=== PATIENT | male | born 1970 | race African-American/Black ===

== ENCOUNTER 2017-02-20 10:44 | Inpatient (IN) ==
[2017-02-20] MEDS ORDERED: SODIUM CHLORIDE 0.9% 500 ML IV STA (12:25)
[2017-02-20] MEDS ORDERED: ONDANSETRON 4 MG/2 ML VIAL IV STA (12:25)
[2017-02-20] MEDS ORDERED: HYDROmorphone 2 MG/1 ML VIAL IV STA ×2 (12:25→16:20)
--- NOTE | 2017-02-20 12:38 | XRay Report ---
XR chest 1V portable Indication: Abdominal pain Comparison: None. Technique: Portable AP chest was performed. Findings: Heart size, mediastinal contour, and hilar structures demonstrate no evidence of acute pathology. Lungs are clear. Bones and soft tissues demonstrate no evidence of acute pathology. Impression: 1. No evidence of acute pathology. 02/20/2017 12:36 PM PROCEDURE INTERPRETED AT [facility] ([facility] DEPARTMENT OF RADIOLOGY Final Report Signed by: Dr. Fabio Hanks
[2017-02-20 12:50] LABS: Basophils # 0.1 10*3/uL (0.0-0.2); Basophils % 0.8 % (0.0-0.8); Eosinophils # 0.3 10*3/uL (0.0-0.87); Eosinophils % 2.8 % (0.00-10.9); Hematocrit 50.1 VOL% (42.0-52.0); Hemoglobin 17.6 GM/DL (14.0-18.0); Immature Granulocytes % 0.3 %; Immature Granulocytes Absolute 0.03 #; Lymphocytes # 1.8 10*3/uL (1.4-4.0); Lymphocytes % 18.3 % (21.2-54.2); Mean Corpuscular HGB Conc 35.1 GM/DL (32-36); Mean Corpuscular Hemoglobin 32 PG (27-34); Mean Corpuscular Volume 90.1 FL (87-102); Mean Platelet Volume 10.5 FL (9.6-12.0); Monocytes # 0.7 10*3/uL (0.11-0.8); Monocytes % 6.8 % (1.7-12.7); Neutrophils # 6.8 10*3/uL (1.4-7.4); Platelet Count 191 T/CUMM (130-400); Red Blood Count 5.56 MC/CUMM (3.8-5.5); Red Cell Distribution Width 11.7 % (9.3-17.3); White Blood Count 9.6 T/CUMM (4-12)
[2017-02-20] MEDS ORDERED: ONDANSETRON 4 MG/2 ML VIAL ONE (12:50)
[2017-02-20] MEDS ORDERED: HYDROmorphone 2 MG/1 ML VIAL ONE (12:50)
[2017-02-20 13:10] LABS: Apearance,Urine CLEAR (Clear); Bilirubin,Urine Negative (Negative); Blood, Urine Negative (Negative); Glucose,Urine (UA) Negative (Negative); Ketones,Urine 5 mg/dL (Negative); Mucus,Urine Occasional /LPF (Occasional); Nitrite,Urine Negative (Negative); Protein,Urine Negative; RBC,Urine 1 /HPF (0-4); Urine Color Yellow (Yellow); Urine Specific Gravity 1.026 (1.001-1.035); WBC,Urine <1 /HPF (0-6)
[2017-02-20 13:21] LABS: Albumin 4.2 G/DL (3.4-5.0); Bilirubin,Total 0.6 MG/DL (0.2-1.0); Calcium 9.2 MG/DL (8.5-10.1); Magnesium 2.4 MG/DL (1.8-2.4); Potassium 4.1 MMOL/L (3.5-5.1); Total Protein 7.2 G/DL (6.4-8.3)
--- NOTE | 2017-02-20 13:56 | Emergency Department Note ---
Judy Chance Hilary, am scribing for, and in the presence of, Zen Amaya MD 12:30. Monique Chance Phillip K, MD, personally performed the services described in this documentation, ascribed by Natalia Kim in my presence, and it is both accurate and complete [id number] . Arrival - Arrival Chief Complaint: Abdominal / Flank Pain Stated Complaint: gallstone x 3 days/fever ED Nursing Triage Note: reports pain in right flank abd area since . was told that he had gallbladder disease and given meds and sent home. painful to stand up straight Mode of Arrival: Wheelchair Limitations: No Limitations Source: Patient, RN Notes Reviewed - History of Present Illness HPI Narrative: Pt is a 47 y/o male presenting to the ED with c/o of abdominal and flank pain which onset 2 days ago. Pt states he was at work when the pain started and he was having trouble putting weight on his right leg due to the pain. He confirms fever, nausea, RUQ swollen but denies vomiting. Pt reports he went to the doctor in [place], [place] on Monday and their CT showed he had gallstones and then they sent him home. He also states that it seems to get worse when he eats fried or spicy foods. No other complaints or problems stated in the ED. Onset (ago): day(s) Allergies/Adverse Reactions: Allergies Allergy/AdvReac Type Severity Reaction Status Date / Time No Known Allergies Allergy Unverified 02/20/17 11:19 Home Medications: Home Medications Medication Instructions Recorded Confirmed Type Hydrocodone/Acetaminophen 1 each PO Q6H PRN 02/20/17 02/20/17 History [Hydrocodon-Acetaminoph 7.5-325] Lisinopril 20 mg PO DAILY 02/20/17 02/20/17 History Ondansetron HCl 8 mg PO Q6H PRN 02/20/17 02/20/17 History Review of System - Review of System 12 point system: reviewed and no additional remarkable complaints except as stated - Review of System Constitutional: Absent: fever Cardiovascular: Absent: chest pain Gastrointestinal: Present: abdominal pain (RUQ and Right Flank pain), nausea, constipation (Last BM 2 days ago). Absent: vomiting Musculoskeletal: Present: back pain (Right flank). Absent: leg pain Medical,Surgical,& Family Hx - Medical History Cardio: History of: Hypertension - Social History Smoking Status: Current every day smoker Exam Vital Signs: Vital Signs Temperature 99.2 F 02/20/17 11:15 Pulse Rate 99 H 02/20/17 11:15 Respiratory Rate 18 02/20/17 11:15 Blood Pressure 143/98 02/20/17 11:15 O2 Sat by Pulse Oximetry 99 02/20/17 11:15 - General General appearance: alert, in no apparent distress - Head Head exam: Present: atraumatic, normocephalic - Eye Eye exam: Present: normal appearance, PERRL, EOMI - ENT ENT exam: Present: mucous membranes moist, TM's normal bilaterally. Absent: mucous membranes dry - Neck Neck exam: Present: full ROM, trachea midline. Absent: tenderness - Chest Chest inspection: Present: symmetric chest wall rise. Absent: tenderness - Respiratory Respiratory exam: Present: normal lung sounds bilaterally. Absent: respiratory distress - Cardiovascular Cardiovascular exam: Present: normal rhythm, tachycardia, normal heart sounds. Absent: murmur, rubs, gallop - Abdominal Exam Abdominal exam: Present: soft, distention (Right side), tenderness (RUQ tenderness on palpation) - Extremities Exam Extremities exam: Present: full ROM. Absent: tenderness, pedal edema - Back Exam Back exam: Present: full ROM, tenderness (Right flank tenderness to palpation) - Neurological Exam Neurological exam: Present: alert, oriented X3, CN II-XII intact. Absent: motor sensory deficit - Psychiatric Psychiatric exam: Present: normal affect, normal mood - Skin Skin exam: Present: warm, dry, intact, normal color. Absent: rash Results - Labs CBC & BMP: 02/20/17 12:39 02/20/17 12:39 Lab Results: I have reviewed the patients labs Labs: Laboratory Tests 02/20/17 02/20/17 12:25 12:39 RBC 5.56 H Lymph % (Auto) 18.3 L Urine Urobilinogen 2.0 H Laboratory Tests 02/20/17 12:39 Glucose 107 H Calculated Osmolality 270.0 L - Diagnostic Findings Procedure: Chest x-ray: report reviewed by me (1. No evidence of acute pathology ) Disposition Clinical Impression: Cholelithiasis and cholecystitis without obstruction Case discussed with: patient Disposition: Still a Patient Condition: Guarded Additional Instructions: Admit to Dr. Mcmahan
--- NOTE | 2017-02-20 15:45 | General Surg History&Physical ---
Assessment and Plan - Time spent with patient Time spent with patient: Greater than 30 minutes (Patient history, patient records, and establishing plan of care) (1) Cholelithiasis and cholecystitis without obstruction Status: Acute Assessment and plan: At this time, it appears the patient has cholelithiasis associated with Kari cystitis. Further clarification with additional testing and/or imaging per Dr. niall antonio. His LFTs are unremarkable at this time. Repeat labs in the morning. We will keep the patient n.p.o., treat pain with analgesics, antiemetics as needed, and start Zosyn. Risks of proceeding with labs, cholecystectomy reviewed with patient including but not limited to infection, bleeding, blood vessel injury, injury to adjacent organ, abnormal healing or nonhealing of the wound, postoperative ileus or obstruction, heart attack, pneumonia, hemothorax, pneumothorax, stroke, and unforeseeable cardiac, pulmonary or neurologic events including the rare possibility of . Patient and his family who are present expressed understanding of these risks and agreed to proceed if the procedure is indicated. Current Visit: Yes (2) Pulmonary nodules/lesions, multiple Status: Acute Assessment and plan: Incidental finding on CT scan incomplete assessment of the lungs at this time. Will obtain a preoperative chest x-ray. Determine the necessity for chest CT inpatient or outpatient. Current Visit: Yes (3) Hypertension Status: Acute Assessment and plan: Continue home meds and monitor. Current Visit: Yes (4) Nicotine dependence, uncomplicated Status: Acute Assessment and plan: Cessation counseling provided including the benefits short-term with operative healing and long-term with longevity. Patient expresses interest in smoking cessation at this time. We will continue to encourage and discuss. Current Visit: Yes (5) Alcohol abuse Status: Acute Assessment and plan: Patient drinks 6-7 beers daily. Last alcohol use was approximately 60 hours ago. Monitor for signs and symptoms of withdrawal. No evidence at this time. Current Visit: Yes (6) Prophylactic measure Status: Acute Assessment and plan: #1 DVTT prophylaxis: SCDs. Start pharmacologic prophylaxis postoperatively as warranted. 2. GI prophylaxis: PPI daily 3. Disposition: Discharge plan will be home with care of the family. Current Visit: Yes History of Present Illness Chief complaint: Abd pain History of present illness: Mr. Shaffer is a 47 year old male with past medical history of hypertension and recently diagnosed cholelithiasis presenting to the emergency department with progressive epigastric and right upper quadrant pain. The patient reports a long-standing history of similar, milder postprandial symptoms which last only a couple hours. Beginning this past weekend he was having more severe pain in the epigastric and right upper quadrant regions and received evaluation at the emergency department where a CT scan was performed and identified gallstones of the gallbladder neck which were described as subcentimeter. These were not quantified and no description of gallbladder distention, gallbladder wall thickening, or evidence of obstruction was noted. He was discharged. Patient reports his symptoms have persisted associated with food fear, nausea without vomiting or diarrhea. He reports associated subjective fever but did not take his temperature. No abdominal distention. Last bowel movement 2 days ago with typically regular daily bowel movements. No reflux symptoms, hematemesis, hematochezia, melena identification, early satiety, anorexia prior to the past few days, or weight loss. Daily alcohol use 6-7 beers daily with last drink > 48 hrs ago. Home Medications Medication Instructions Recorded Confirmed Type Hydrocodone/Acetaminophen 1 each PO Q6H PRN 02/20/17 02/20/17 History [Hydrocodon-Acetaminoph 7.5-325] Lisinopril 20 mg PO DAILY 02/20/17 02/20/17 History Ondansetron HCl 8 mg PO Q6H PRN 02/20/17 02/20/17 History Allergies Allergy/AdvReac Type Severity Reaction Status Date / Time No Known Allergies Allergy Unverified 02/20/17 11:19 Medical,Surgical,& Family Hx - Medical History Cardio: History of: Hypertension - Surgical History Orthopedic Surgeries: Surgical HX of;: Orthopedic Surgery - Family History Family History: Reports;: Family Cancer (breast), Family Diabetes - Social History Smoking Status: Current every day smoker Have you smoked in the last 12 months: Yes Time spent discussing smoking cessation with patient: 3 to 10 minutes Frequency of Alcohol Use: Frequently (Daily alcohol - 6-7 beers daily.) Type of Drug Use: None Marital Status: Functional capacity: independent ambulation Exam - Constitutional Vitals: Period Temp Pulse Resp BP Sys/Smith Pulse Ox Last 24 Hr 99.2 F 99 18 143/98 99 General appearance: normal weight, no acute distress - Head Head exam: Present: normal inspection, normocephalic, atraumatic - Eye Eye exam: Present: EOMI. Absent: conjunctival injection, scleral icterus - Respiratory Respiratory exam: Present: clear to auscultation bilaterally, prolonged expiratory phase. Absent: rales, rhonchi, wheezes - Cardiovascular Cardiovascular exam: Present: RRR - GI/Abdominal GI/Abdominal exam: Present: normal bowel sounds, Barragan's sign, tenderness ( Epigastric and RUQ tenderness localized without guarding or rigidity), soft. Absent: distended - Extremities Exam Extremities exam: Absent: calf tenderness, edema - Neurological Exam Neurological exam: Present: alert, oriented X3 - Skin Skin exam: Present: normal color, warm - Constitutional Constitutional: Present: as per HPI, fever(s). Absent: lethargy, night sweats, weight gain, weight loss - Cardiovascular Cardiovascular: Absent: chest pain at rest, chest pain with activity, dyspnea on exertion, orthopnea, palpitations - Respiratory Respiratory: Absent: cough, dyspnea on exertion, wheezing - Gastrointestinal Gastrointestinal: Present: as per HPI - Genitourinary Genitourinary: Absent: dysuria, hematuria - Musculoskeletal Musculoskeletal: Absent: arthralgias, joint swelling Hematologic/Lymphatic: Absent: easy bleeding, easy bruising Results - Labs CBC & BMP: 02/20/17 12:39 02/20/17 12:39 - Diagnostic Findings Procedure: CT Abdomen and Pelvis: report reviewed by me (Outside CT scan revealed what is described as "subcentimeter calculi of the gallbladder noted in the neck" separately pulmonary nodules are incidentally noted with a 3 to six -month repeat scan recommended.)
[2017-02-20] MEDS ORDERED: ACETAMINOPHEN 325 MG TABLET PO PRN (16:56)
[2017-02-20] MEDS ORDERED: ALBUTEROL/IPRATROPIUM 3 ML NEB RESP TX PRN (16:56)
[2017-02-20] MEDS ORDERED: ONDANSETRON 4 MG/2 ML VIAL IV PRN (16:56)
[2017-02-20] MEDS: PIPERACILLIN/TAZOBACTAM 3,375 MG in SODIUM CHLORIDE 0.9% 100 ML IV SCH (17:23)
[2017-02-20] MEDS: SODIUM CHLORIDE 0.9% 1,000 ML IV SCH (17:23)
[2017-02-20] MEDS: HYDROmorphone 2 MG/1 ML VIAL IV PRN ×2 (18:05→21:06)
--- NOTE | 2017-02-20 18:16 | Ultrasound Report ---
History: Right upper quadrant abdominal pain Date: 02/20/2017 Study: Abdominal ultrasound limited to the right upper quadrant Comparison exam: No previous similar study Real-time ultrasound images are captured and archived. The liver is normal in size at 13.2 cm and is without focal mass lesion. There is gallbladder wall thickening of 6 mm. There is a positive sonographic Barragan sign. There is a highly echogenic focus with posterior acoustic shadowing compatible with gallstone lodged in the neck of the gallbladder. There is no biliary dilatation. The common bile duct measures 4.6 mm. The right kidney measures 11.8 cm in length and appears normal. The pancreas is obscured by bowel gas. Impression: Cholelithiasis. Gallbladder wall thickening and positive sonographic Barragan sign, suggesting potential acute cholecystitis PROCEDURE INTERPRETED AT [facility] DEPARTMENT OF RADIOLOGY Final Report Signed by: Dr. Massiel Llanos
--- NOTE | 2017-02-20 22:21 | XRay Report ---
History: Shortness of breath Date: 02/20/2017 at 5:35 PM Study: Chest x-ray PA and lateral Comparison exam: February 20, 2017 at 12:31 PM The cardiac silhouette is not enlarged. There is no mediastinal mass. The pulmonary vasculature is not engorged. There is no pleural effusion. The lungs are essentially unchanged when accounting for shallow breath. Osseous structures are unchanged. Impression: No definite acute process compared to the previous study PROCEDURE INTERPRETED AT [facility] DEPARTMENT OF RADIOLOGY Final Report Signed by: Dr. Massiel Llanos
[2017-02-21] MEDS: SODIUM CHLORIDE 0.9% 1,000 ML IV SCH (00:22)
[2017-02-21] MEDS: HYDROmorphone 2 MG/1 ML VIAL IV PRN ×2 (00:23→04:48)
[2017-02-21] MEDS: PIPERACILLIN/TAZOBACTAM 3,375 MG in SODIUM CHLORIDE 0.9% 100 ML IV SCH (00:23)
[2017-02-21] MEDS ORDERED: TISSUE ADHESIVE 1 EACH APPLICATOR TOP ONE (06:48)
[2017-02-21] MEDS ORDERED: LIDOCAINE 1%/EPI INJ 20 ML VIAL ONE (06:48)
[2017-02-21] MEDS ORDERED: LIDOCAINE 2% 5 ML VIAL ONE (06:59)
[2017-02-21] MEDS ORDERED: ONDANSETRON 4 MG/2 ML VIAL ONE (06:59)
[2017-02-21] MEDS ORDERED: PROPOFOL 200 MG/20 ML VIAL IV ONE (06:59)
[2017-02-21] MEDS ORDERED: KETOROLAC 30 MG/1 ML VIAL ONE (06:59)
[2017-02-21] MEDS ORDERED: ROCURONIUM 100 MG/10 ML VIAL IV ONE (06:59)
[2017-02-21] MEDS ORDERED: DEXAMETHASONE 10 MG/1 ML VIAL ONE (06:59)
--- NOTE | 2017-02-21 08:06 | EKG Report ---
Stationary ECG Study [facility] ER Test Date: 02/20/2017 12:36:52 PM Pat Name: CARLY DIAZ Department: Room: 336 Gender: M Promotions Director: : 1970 Requested by: Zen Viera Order Number: [id number] Reading MD: SCOTTY BARTHOLOMEW Intervals High View Rate: 75 P: 73 NE: 146 QRS: 74 QRSD: 98 T: 80 QT: 376 QTc: 405 Interpretive Statements SINUS RHYTHM Electronically Signed On 02-23-17 10:18:48 CDT by SCOTTY BARTHOLOMEW [email or web address]
--- NOTE | 2017-02-21 08:24 | Operative Note ---
Date of procedure: 02/21/17 Pre-op diagnosis: Acute cholecystitis Post-op diagnosis: same Procedure: Preoperative diagnosis Acute cholecystitis Postoperative diagnosis Same Procedures performed Laparoscopic cholecystectomy Findings Acute and chronic cholecystitis was seen. The critical view of safety was obtained prior to placing clips on the cystic duct and cystic artery. Complications None apparent Specimen Gallbladder Anesthesia GETA Blood loss 5 mL Indications Acute cholecystitis. The risks, benefits, and alternatives of the operation were discussed with the patient in detail, and the expected outcomes were reviewed. In particular, the risk of bowel injury, liver injury, bile duct leak and bile duct injury, as well as pancreatitis and retained or drop stones were discussed in detail. All the patient's questions were answered. She like to proceed with the operation. Description of procedure The patient was taken to the operating room and transferred to the operating table in the supine position. Pressure points were padded and SCDs were placed to bilateral lower extremities. General endotracheal anesthesia was administered. The abdomen was prepped chlorhexidine and draped sterilely. Preoperative antibiotics were administered, a timeout was performed. The abdomen was entered in a supraumbilical location of the Veress needle. The skin incision was made in the supraumbilical location with a 11 blade scalpel after local anesthetic was administered. Umbilical stalk was grasped with a penetrating towel clip. A Veress needle was used to enter the peritoneal cavity confirmed by double click technique. Aspiration was negative. Saline drop test confirmed intraperitoneal location. The abdomen was insufflated to 15 mmHg with an initial insufflation pressure of 2 mmHg. The Veress needle was removed and a 5 mm trocar was placed blindly. The towel clip was removed. Diagnostic laparoscopy was performed. There is no evidence of Veress needle or trocar injury. The patient was placed in reverse Trendelenburg and left side rolled down position. Under direct visualization, and after local anesthetic was administered, an 11 mm midepigastric trocar and 2 right subcostal 5 mm trochars were placed. The gallbladder was grasped at the fundus and infundibulum. The cystic plate peritoneum was dissected into the critical view of safety was obtained. The cystic duct and cystic artery were clipped twice initially and once laterally and divided laparoscopically with scissors between clips. Gallbladder was removed from the gallbladder fossa using hook electrocautery. The gallbladder was placed in a Endo Catch retrieval bag through the 11 mm trocar and removed through the trocar with some extension of the fascia due to a large gallstone. The gallbladder fossa was suction irrigated until the effluent was clear. The CO2 was released from the abdomen and the trochars were removed. The fascial defect at the midepigastric trocar was closed with a 0 Vicryl [id number] suture with no residual fascial defect. The skin incisions were closed with 4-0 Monocryl subcuticular suture and sterile skin glue. The patient was awakened from anesthesia and transferred to recovery. Postoperative plan Advance diet as tolerated Pain control Anesthesia: KELLIA, local Surgeon / Physician: Nathen Mcmahan Estimated blood loss: minimal Specimens: other (gallbladder) Disposition: PACU Results - Labs CBC & BMP: 02/20/17 12:39 02/20/17 12:39 Discharge Plan - Discharge Data Disposition: Disch To Home/Self Care Condition at Discharge: Stable Discharge Diet: advance to your usual diet Activity: no lifting Hygiene: may shower Weight Bearing at Discharge: weight bear as tolerated Driving: not for (24 hours and off of narcotic pain medication) Contact your physician if you experience:: fever over 101, Difficulty voiding, Redness or swelling, Nausea/Vomiting, Shortness of breath, Bleeding, pain uncontrolled by pain medications Wound / Dressing Care Instructions: It is okay to shower. Do not scrub the incision aggressively or submerge it under water. - Discharge Medications New HYDROcodone/ACETAMIN 7.5-325 [[address] 7.5-325] 1 tablet PO Q4H PRN #30 tablet PRN Reason: Pain Moderate (4-7) Continue Hydrocodone/Acetaminophen [Hydrocodon-Acetaminoph 7.5-325] 1 each PO Q6H PRN PRN Reason: Pain Ondansetron HCl 8 mg PO Q6H PRN PRN Reason: Nausea Lisinopril 20 mg PO DAILY - Follow Up or Referral Follow Up: Nathen Mcmahan MD [Physician] - 2 Weeks - Forms/Instructions
--- NOTE | 2017-02-21 08:34 | Anesthesia Post-Op ---
Anesthesia Post OP - Post Ansesthetic Evaluation Patient seen in post op: Yes Resp: within normal limits CV: within normal limits Mental: within normal limits Temp: within normal limits [id number]-[id number]-[id number]: within normal limits Nausea and Vomiting: within normal limits Pain: within normal limits
[2017-02-21] MEDS ORDERED: SEVOFLURANE 1 UNIT/15 MINUTE INH ONE (08:36)
[2017-02-21] MEDS ORDERED: MIDAZOLAM 2 MG/2 ML VIAL ONE (08:36)
[2017-02-21] MEDS ORDERED: fentaNYL 100 MCG/2 ML VIAL ONE (08:37)
[2017-02-21] MEDS ORDERED: HYDROmorphone 2 MG/1 ML VIAL IV PRN (08:43)
[2017-02-21] MEDS ORDERED: ONDANSETRON 4 MG/2 ML VIAL IV PRN (08:43)
[2017-02-21] MEDS ORDERED: LACTATED RINGERS 1,000 ML IV SCH (09:00)
[2017-02-21] MEDS ORDERED: LISINOPRIL 20 MG TABLET PO SCH (09:00)
[2017-02-21] MEDS ORDERED: PANTOPRAZOLE 40 MG TABLET PO SCH (09:00)
[2017-02-21 13:36] VITALS: BP 97/65
--- NOTE | 2017-02-22 10:49 | Pathology Report from [facility] ---
ACCESSION # : [id number] PATIENT NAME : Carly Shaffer ORDERING DR : Nathen Mcmahan MD CLINICAL HX: Cholelithiasis w/cholelithiasis & obstruction POST-OP DX: Same SPECIMEN INFO: Gallbladder GROSS DESCRIPTION: Received in formalin labeled "CARLY SHAFFER" is a focally opened gallbladder measuring 10.1 x 3.9 cm. The serosa is erythematous and focally ulcerated. The gallbladder wall has an average thickness of 0.3 cm. The mucosa is hemorrhagic and ulcerated. The lumen contains mucoid hemorrhagic brown bile. In the area of the cystic duct is a elongated yellow brown stone measuring 3.5 x 1.7 cm. Accounting Machine Mechanic sections are submitted in one cassette. DIAGNOSIS FOR CARLY SHAFFER: GALLBLADDER: Acute and chronic cholecystitis. Cholelithiasis. No evidence of malignancy. SERVICE DATE: 02/21/2017 REPORT DATE: 02/22/2017 PATHOLOGIST: Jan Gonzalez III, M.D. MTDD
== END 2017-02-21 14:30 | disposition home or self-care (01) | DRG 419 ==
LOC: N.ED 10:44 → N.EDINP 15:33 → N.3E 16:55
PROVIDERS: ADMIT Surgery; ATTEND Surgery
PROC: LAPCHOL (2017-02-21 06:59)